=== PATIENT | female | born 1985 | race Two or more races ===

== ENCOUNTER 2022-08-07 21:42 | Emergency (ER) | payer MEDICAID, OTHER ==
[~2022-08-07] VITALS: Ht 162.6 cm; Wt 48.1 kg
--- NOTE | 2022-08-07 21:57 | NUR ---
ANUPAMA 37 FROM HOME FOR L SIDED FACIAL AND BODY WEAKNESS X 4 DAYS. PT A/OX4; ABLE TO FOLLOW COMMANDS. TOLERATING R/A WELL WITH NO RESP DISTRESS. CONNECTED PT TO POX AND MONNITOR. SAFETY MEASURES IN [facility]
--- NOTE | 2022-08-07 22:09 | NUR ---
DR. VERONICA YEE AT PT'S BEDSIDE FOR EVAL
--- NOTE | 2022-08-07 22:28 | NUR ---
RAC #18G S/L BLOOD COLLECTED AND SENT TO LAB
--- NOTE | 2022-08-07 22:29 | NUR ---
PT SIGNED WAIVER FORM; RADIOLOGY NOTIFIED
[2022-08-07 22:31] LABS: BASOPHILS % (AUTO) 2.6 % (0.0-2.0); EOSINOPHILS % (AUTO) 2.7 % (0.0-6.0); HEMATOCRIT 39 % (33-45); HEMOGLOBIN 12.6 g/dL (11.5-14.8); LYMPHOCYTES % (AUTO) 52.1 % (20.0-44.0); MEAN CORPUSCULAR HGB CONC 32 g/dl (31.0-36.0); MEAN CORPUSCULAR VOLUME 92 fL (82-100); MONOCYTES % (AUTO) 7.4 % (2.0-12.0); NEUTROPHILS % (AUTO) 35.2 % (43.0-81.0); PLATELET COUNT (AUTO) 227 K/uL (150-450); RED BLOOD CELL COUNT(AUTO) 4.21 MIL/uL (4.0-5.2); WHITE BLOOD COUNT (AUTO) 4.2 K/uL (4.3-11.0)
[2022-08-07 22:32] LABS: BASOPHILS # (AUTO) 0.1 K/uL (0.0-0.2); LYMPHOCYTES # (AUTO) 2.2 K/uL (0.8-4.8); MONOCYTES # (AUTO) 0.3 K/uL (0.1-1.30); NEUTROPHILS # (AUTO) 1.5 K/uL (1.8-8.9)
[2022-08-07] MEDS ORDERED: IOHEXOL-350 100 ML VIAL IV ONE (22:37)
[2022-08-07] MEDS ORDERED: CT SWABBABLE VALVE TRANS SET 1 EA INFUS.SET MC ONE (22:37)
[2022-08-07] MEDS ORDERED: IV NS 0.9% 250 ML IV ONE (22:38)
--- NOTE | 2022-08-07 22:38 | NUR ---
PT TAKEN TO CT VIA [facility]
[2022-08-07 22:53] LABS: ALBUMIN 3.8 g/dL (3.4-5.0); BILIRUBIN,TOTAL 0.1 mg/dL (0.2-1.0); CALCIUM, SERUM 8.6 mg/dL (8.5-10.1); CREATININE 0.7 mg/dL (0.6-1.3); MAGNESIUM 1.9 mg/dL (1.8-2.4); POTASSIUM 3.5 mmol/L (3.5-5.1); TOTAL PROTEIN, SERUM 7.3 g/dL (6.4-8.2)
--- NOTE | 2022-08-07 22:56 | NUR ---
PT RETURNED TO ER BED [address]
--- NOTE | 2022-08-08 00:27 | NUR ---
COVID ANTIGEN SWAB COLLECTED AND SENT TO LAB
--- NOTE | 2022-08-08 00:31 | NUR ---
COVID TEST SENT TO LAB
--- NOTE | 2022-08-08 04:45 | NUR ---
[facility] CALLED
--- NOTE | 2022-08-08 04:51 | NUR ---
DR VERONICA YEE ON PHONE CALL WITH DR. DAWSON KOENIG MD
[2022-08-08] MEDS ORDERED: DEXT15DR6 EACHEYE ×2 (06:15→06:50)
[2022-08-08] MEDS ORDERED: PRED20TA PO ×2 (06:15→06:50)
[2022-08-08] MEDS ORDERED: MINE3.5O26 OP ×2 (06:20→06:50)
--- NOTE | 2022-08-08 06:43 | NUR ---
Patient discharged to home in stable condition via lyft. RX Written and verbal after care instructions given. Patient verbalizes understanding of instruction. PT ambulatory with a steady gait
[2022-08-08 07:11] VITALS: BP 101/65
== END 2022-08-08 07:00 | disposition home or self-care (01) ==
LOC: ER 21:44
DX: G51.0 Bell's palsy (principal); R53.1 Weakness; Z98.890 Other specified postprocedural states; Z79.899 Other long term (current) drug therapy; Z20.822 Contact with and (suspected) exposure to COVID-19; Z60.2 Problems related to living alone; Z88.1 Allergy status to other antibiotic agents
CPT/HCPCS: 99285; 70450; 70498; 70496; 85025; 83735; 36415; 80053; 87426; J7050; Q9967; C9803